=== PATIENT | male | born 1990 | race Caucasian/White ===

== ENCOUNTER 2018-01-24 11:00 | Outpatient (CLI) | payer OTHER ==
[~2018-01-24 11:00] MED LIST: AMOX1TAB12 PO; KETO10TA2 PO; MUPIROCIN22 GM TOP
== END 2018-01-24 17:00 | disposition home or self-care (01) ==
LOC: MRI 11:00
DX: H53.8 Other visual disturbances (principal)
CPT/HCPCS: 70551

== ENCOUNTER 2018-03-07 17:09 | Emergency (ER) | payer OTHER ==
[~2018-03-07] VITALS: Ht 177.8 cm; Wt 81.6 kg
[2018-03-07] MEDS ORDERED: RISPERDAL3 MG (17:17)
== END 2018-03-08 10:35 | disposition home or self-care (01) ==
LOC: ER 17:09
DX: K29.70 Gastritis, unspecified, without bleeding (principal); B34.9 Viral infection, unspecified; R50.9 Fever, unspecified; E86.0 Dehydration

== ENCOUNTER 2018-03-12 10:02 | Outpatient (CLI) | payer OTHER ==
[~2018-03-12 10:02] MED LIST changes: +RISPERDAL3 MG
== END 2018-03-12 10:07 | disposition home or self-care (01) ==
LOC: LAB 10:02
DX: E11.9 Type 2 diabetes mellitus without complications (principal); E78.1 Pure hyperglyceridemia

== ENCOUNTER 2018-03-14 06:41 | Outpatient (CLI) | payer OTHER | END 2018-03-14 06:51 | disposition home or self-care (01) | LOC: LAB 06:41 | DX: K75.9 Inflammatory liver disease, unspecified (principal) ==

== ENCOUNTER 2019-01-01 17:19 | Outpatient (CLI) | payer OTHER | END 2019-01-01 18:14 | disposition home or self-care (01) | LOC: LAB 17:19 | DX: J11.1 Influenza due to unidentified influenza virus with other respiratory manifestations (principal) ==

== ENCOUNTER 2019-02-01 12:49 | Outpatient (CLI) | payer OTHER | END 2019-02-01 12:58 | disposition home or self-care (01) | LOC: RAD 12:49 | DX: M41.125 Adolescent idiopathic scoliosis, thoracolumbar region (principal) ==

== ENCOUNTER → 2019-05-04 | Emergency (ER) | payer OTHER ==
[~2019-05-04] VITALS: Ht 180.3 cm; Wt 79.4 kg
[~2019-05-04] MED LIST changes: +CLONAZEPAM0.5 MG; +LITHIUM CARBON300 M1
== END | disposition left against medical advice (07) ==
LOC: ER 12:40
DX: K29.70 Gastritis, unspecified, without bleeding (principal); R10.31 Right lower quadrant pain

== ENCOUNTER 2022-03-03 09:25 | Outpatient (CLI) | payer OTHER | END 2022-03-03 09:40 | disposition home or self-care (01) | LOC: TOM 09:25 | PROVIDERS: ATTEND Surgery | DX: K40.20 Bilateral inguinal hernia, without obstruction or gangrene, not specified as recurrent (principal) ==

== ENCOUNTER 2024-05-01 10:57 | Outpatient (CLI) | payer OTHER | END 2024-05-01 11:30 | disposition home or self-care (01) | LOC: RAD 10:57 | DX: M54.2 Cervicalgia (principal); M54.6 Pain in thoracic spine; M54.50 Low back pain, unspecified ==